=== PATIENT | male | born 1955 | race Two or more races ===

== ENCOUNTER 2023-01-24 17:18 | Inpatient (IN) | payer MEDICARE, OTHER ==
[~2023-01-24] VITALS: Ht 172.7 cm; Wt 77.1 kg
--- NOTE | 2023-01-24 17:30 | NUR ---
[facility] MOLD NOTES REPORT RECEIVED FROM COLIN VILLALOBOS FROM [facility]. PATIENT WAS TRANSFERRED FROM [facility] VIA [facility], NO SIGNS AND SYMPTOMS OF DISTRESS. COMPLAINING OF MILD CHEST PAIN 01/05. 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 VS TAKEN BP 151/78 UT 67. SKIN INTACT, ALL BELONGINGS CHECKED AND LISTED. DR. VELÁZQUEZ INFORMED. AWAITING ADMITTING ORDERS.
[2023-01-24] MEDS ORDERED: HYDROCODONE/APAP 5/325MG TABLET PO PRN (18:30)
[2023-01-24] MEDS ORDERED: MORPHINE SULFATE INJ 2 MG/ML DISP.SYRIN IV PRN (18:30)
[2023-01-24] MEDS ORDERED: NITROGLYCERIN 0.4 MG/TAB BOTTLE SL PRN (18:30)
[2023-01-24] MEDS ORDERED: ACETAMINOPHEN 325 MG TABLET PO PRN (18:30)
[2023-01-24] MEDS ORDERED: ONDANSETRON HCL/PF 4 MG/2 ML VIAL IVP PRN (18:30)
--- NOTE | 2023-01-24 19:00 | NUR ---
SHAKE SPLITTER NOTES PT IN BED, RESTING, ON TELE MONITORING WITH READING OR SR WITH BBB, DINNER SERVED, ADMITTING ORDER RECEIVED FROM DR. EVLÁZQUEZ, NO BLEEDING NOTED AT AV SHUNT SITE AT LEFT ARM, ALL NEEDS ATTENDED.
[2023-01-24] MEDS ORDERED: SEVE800T8 PO (19:14)
[2023-01-24] MEDS ORDERED: ASPI-1169 PO (19:14)
[2023-01-24] MEDS ORDERED: ATOR40TA PO (19:14)
[2023-01-24] MEDS ORDERED: BUME2TAB7 PO (19:14)
[2023-01-24] MEDS ORDERED: CHOL100062 PO (19:14)
[2023-01-24] MEDS ORDERED: SUCR500T PO (19:14)
[2023-01-24] MEDS ORDERED: EZET10TA32 PO (19:14)
[2023-01-24] MEDS ORDERED: AMLO-213 PO (19:14)
[2023-01-24] MEDS ORDERED: TAMS-12 PO (19:14)
[2023-01-24] MEDS ORDERED: GABA-532 PO (19:14)
[2023-01-24] MEDS ORDERED: METO25TA20 PO (19:14)
[2023-01-24 20:00] VITALS: BP 148/69
[2023-01-25] VITALS: BP 142/72
[2023-01-25 04:00] VITALS: BP 159/85
[2023-01-25 06:04] LABS: BASOPHILS % (AUTO) 0.4 % (0.0-2.0); EOSINOPHILS % (AUTO) 3.6 % (0.0-6.0); HEMATOCRIT 34 % (39-51); HEMOGLOBIN 11.5 g/dL (13.5-17.5); LYMPHOCYTES # (AUTO) 1.3 K/uL (0.8-4.8); LYMPHOCYTES % (AUTO) 22.4 % (20.0-44.0); MEAN CORPUSCULAR HGB CONC 34 g/dl (31.0-36.0); MEAN CORPUSCULAR VOLUME 100 fL (80-96); MONOCYTES # (AUTO) 0.5 K/uL (0.1-1.30); MONOCYTES % (AUTO) 8.3 % (2.0-12.0); NEUTROPHILS # (AUTO) 3.7 K/uL (1.8-8.9); NEUTROPHILS % (AUTO) 65.3 % (43.0-81.0); PLATELET COUNT (AUTO) 179 K/uL (150-450); RED BLOOD CELL COUNT(AUTO) 3.43 MIL/uL (4.5-6.0); WHITE BLOOD COUNT (AUTO) 5.7 K/uL (4.3-11.0)
[2023-01-25 06:37] LABS: CALCIUM, SERUM 8.8 mg/dL (8.5-10.1); MAGNESIUM 2.6 mg/dL (1.8-2.4); PHOSPHORUS 4.7 mg/dL (2.5-4.9); POTASSIUM 4.7 mmol/L (3.5-5.1)
[2023-01-25 06:53] LABS: CREATININE 9.4 mg/dL (0.6-1.3)
--- NOTE | 2023-01-25 06:53 | NUR ---
END OF SHIFT REPORT Patient in bed, Alert Oriented x4. Oxygen sat high 90's in RA. Sinus rhythm Sinus Tach in the Tele monitor. HR 90's Denies chest pain. IV Right hand intact, LFA AV shunt no bleeding. Independent with ambulation. No BM during the night. Swab nares for MRSA test, collected and send to lab. No acute distress, denies SOB. ECHO pending result. Med recon for review. Will endorse to oncoming RN.
--- NOTE | 2023-01-25 07:00 | NUR ---
MS RN OPENING NOTES: RECEIVED PT IN BED, AWAKE, UKRAINIAN SPEAKING A/O X 4 AND ABLE TO MAKE NEEDS KNOWN. NO SOB OR CARDIAC DISTRESS NOTED. DENIES PAIN AT THIS TIME. ON ROOM AIR AND TOLERATING WELL. IV ACCESS ON RIGHT HAND GAUGE 22PATENT, INTACT. HD ACCESS ON LFA AV FISTULA . SAFETY MEASURES MAINTAINED: BED LOCKED AND IN LOWEST POSITION, SIDE RAILS UP X 2. CALL LIGHT IN EASY REACH FOR HELP AND WILL MONITOR PT ACCORDINGLY.
[2023-01-25] MEDS ORDERED: PANTOPRAZOLE 40 MG TABLET.DR PO SCH (07:30)
[2023-01-25 08:07] LABS: THYROID STIMULATING HORMONE 4.498 uIU/mL (0.358-3.74)
--- NOTE | 2023-01-25 08:29 | NUR ---
RN NOTES: RELAYED LAB RESULT BUN 93, CREA 9.[address] VELÁZQUEZ AND ORDERED FOR NEPHRO/HD CONSULT. ORDERS NOTED AND CARRIED OUT.
[2023-01-25] MEDS ORDERED: GABAPENTIN 100 MG CAPSULE PO PRN (08:30)
[2023-01-25] MEDS ORDERED: ASPIRIN 81 MG TAB.CHEW PO SCH (09:00)
[2023-01-25] MEDS ORDERED: AMLODIPINE BESYLATE 10 MG TABLET PO SCH (09:00)
[2023-01-25] MEDS ORDERED: EZETIMIBE 10 MG TABLET PO SCH (09:00)
[2023-01-25] MEDS ORDERED: ASPIRIN EC 81 MG TABLET.DR PO SCH (09:00)
[2023-01-25] MEDS ORDERED: ATORVASTATIN 40 MG TABLET PO SCH (09:00)
[2023-01-25] MEDS ORDERED: TAMSULOSIN 0.4 MG CAP.SR.24H PO SCH (09:00)
[2023-01-25] MEDS ORDERED: Medication Not On Formulary EA (Sucroferric Oxyhydroxide (Velphoro) 500 MG) PO SCH (09:00)
--- NOTE | 2023-01-25 11:00 | NUR ---
RN NOTES: 0950AM PT CONSENT SIGNED FOR CT ANGIO 3D IMAGE. @1100 PT LEFT VIA WHEELCHAIR ACCOMPANIED BY TRANSPORTER/TICKET CLERK ESTEVAN. PT STABLE.
[2023-01-25] MEDS: METOPROLOL TARTRATE INJ 5 MG/5 ML AMPUL IVP PRN ×4 (11:35→11:50)
[2023-01-25] MEDS ORDERED: NITROGLYCERIN 0.4 MG/TAB BOTTLE ONE (11:42)
[2023-01-25] MEDS ORDERED: METOPROLOL TARTRATE INJ 5 MG/5 ML AMPUL ONE (11:42)
[2023-01-25] MEDS ORDERED: IOHEXOL-350 100 ML VIAL IV ONE (11:44)
[2023-01-25] MEDS ORDERED: CT SWABBABLE VALVE TRANS SET 1 EA INFUS.SET MC ONE (11:45)
[2023-01-25] MEDS ORDERED: IV NS 0.9% 250 ML IV ONE (11:45)
--- NOTE | 2023-01-25 11:55 | NUR ---
RN NOTES CTCA PROCEDURE WELL TOLERATED BY THE PT. PT IS AAOX4, NOT IN RESPIRATORY DISTRESS, V/S STABLE, KEPT RESTED AND COMFORTABLE. REPORT GIVEN TO BEDSIDE RN FOR MICHAELA.
[2023-01-25] MEDS ORDERED: NITROGLYCERIN 0.4 MG/TAB BOTTLE SL ONE (12:00)
[2023-01-25] MEDS: METOPROLOL TARTRATE 25 MG TABLET PO SCH ×2 (12:00→17:06)
--- NOTE | 2023-01-25 12:09 | NUR ---
RN NOTES: S/P CT ANGIO, RECEIVED A CALL FROM RN ANGIE AND PER RN ANGIE THEY GAVE METOPROLOL IN THE CT AND NITRO TAB. PT STABLE PER RN ANGIE.
--- NOTE | 2023-01-25 15:00 | NUR ---
RN NOTES: RELAYED CT ANGIO RESULT TO DR BESS. ORDERED DC PER HOSPITALIST. DR VELÁZQUEZ HAD ORDER FOR DC. PATIENT MADE AWARE.
--- NOTE | 2023-01-25 15:01 | NUR ---
RN NOTES: PT STARTED HD, ACCOMPANIED BY HR RN RK. PATIENT A/O X 4 NOT IN ANY DISTRESS. PT STABLE.
[2023-01-25] MEDS ORDERED: SEVELAMER CARBONATE 800 MG TABLET PO SCH (17:00)
[2023-01-25 17:06] VITALS: BP 139/85
--- NOTE | 2023-01-25 17:46 | NUR ---
DISCHARGE NOTES: PT DC HOME. PT A/O X 4 AND ABLE TO MAKE NEEDS KNOWN, NO SOB, NO CHEST PAINS AT THIS TIME. S/P HD AND OUTPUT 1L. DC INSTRUCTIONS AND PACKET GIVEN TO PT AND VERBALIZED UNDERSTANDING. ALL BELONGINGS WITH PT. SKIN IS INTACT.REMOVED IV ACCESS AND IDENTIFICATION BAND REMOVED.
== END 2023-01-25 17:39 | disposition home or self-care (01) | DRG 302 ==
LOC: MED 17:18 → TELE 17:35
DX: I25.118 Atherosclerotic heart disease of native coronary artery with other forms of angina pectoris (principal); N18.6 End stage renal disease; I13.11 Hypertensive heart and chronic kidney disease without heart failure, with stage 5 chronic kidney disease, or end stage renal disease; E78.5 Hyperlipidemia, unspecified; E83.41 Hypermagnesemia; I45.10 Unspecified right bundle-branch block; I70.0 Atherosclerosis of aorta; M89.8X9 Other specified disorders of bone, unspecified site; N40.0 Benign prostatic hyperplasia without lower urinary tract symptoms; Z95.1 Presence of aortocoronary bypass graft; Z99.2 Dependence on renal dialysis
CPT/HCPCS: 36415; 71045-TC; 75574; 80048-TC; 80061-TC; 83735-TC; 84100-TC; 84443-TC; 84484-TC; 85025-TC; 86706; 87081-TC; 87340; 90935-TC; 93307-TC; G0378; J3490; J7030; J7050; Q9967